=== PATIENT | male | born 1965 | race Hispanic/Latino ===

== ENCOUNTER 2018-10-16 11:50 | Emergency (ER) | payer SELFPAY ==
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
== END 2018-10-16 12:51 | disposition home or self-care (01) ==
LOC: ER 11:50
DX: T63.441A Toxic effect of venom of bees, accidental (unintentional), initial encounter (principal); R22.0 Localized swelling, mass and lump, head; R22.33 Localized swelling, mass and lump, upper limb, bilateral; Z91.030 Bee allergy status
CPT/HCPCS: 99282

== ENCOUNTER 2024-06-21 12:49 | Emergency (ER) | payer SELFPAY ==
--- NOTE | 2024-06-21 13:37 | RAD REPORT ---
EXAMINATION: CT HEAD WITHOUT CONTRAST CT CERVICAL SPINE WITHOUT CONTRAST CLINICAL INDICATION: Male, 59 years old. Pain;Trauma TECHNIQUE: Axial CT images from the skull base to the vertex without intravenous contrast. Axial CT i mages through the cervical spine were obtained without intravenous contrast. Sagittal and coronal reformatted images were created from the data set. Coronal and sagittal reformatted images were creat ed from the data set. One or more of the following dose reduction techniques were used: Automated exposure control, adjustment of the mA and/or kV according to patient size, and/or iterative reconstr uction. Unless otherwise specified, incidental findings do not require dedicated imaging follow-up. [id number]. COMPARISON: No prior exam. FINDINGS: Head: INTRACRANIAL: No acute intracranial hemorrhage. No hydrocephalus. No mass effect or midline shift. No significant white matter disease. VASCULATURE: No visualized abnormalities in the arteries or dural venous sinuses. SCALP/SKULL: No significant soft tissue or osseous abnormalities. SINUSES: Mild paranasal sinus thickening including at the maxillary sinuses and ethmoid air cells. Cervical spine: ALIGNMENT: The cervical spine has normal alignment without scoliosis or spondylolisthesis. BONE: Vertebral body heights are maintained. No aggressive osseous lesions. DEGENERATIVE CHANGES: None significant. SOFT TISSUE: No significant abnormalities in the soft tissue of the neck. The visualized lung apices are clear. IMPRESSION: No acute intracranial abnormality. No acute fracture or traumatic malalignment of the cervical spine.
--- NOTE | 2024-06-21 13:42 | RAD REPORT ---
EXAMINATION: LUMBAR SPINE 3 VIEWS CLINICAL INDICATION: Male, 59 years old. PAIN TECHNIQUE: AP, lateral, focused lateral lumbosacral views of the lumbar spine were obtained. [id number]. COMPARISON: CT 01/27/2023 FINDINGS: For purposes of this dictation, it is assumed that there are 5 lumbar type vertebral bodies and that S1 is a transitional vertebral body. ALIGNMENT: Grade 1 anterolisthesis of L5 on S1. BONES: Vertebral bodies are normal in height. No aggressive osseous lesions. DISCS: Disc heights are maintained. SOFT TISSUE: Surgical clips in the central abdomen. IMPRESSION: No acute lumbar spine abnormality.
--- NOTE | 2024-06-21 14:22 | EDPHYS ---
Physician Documentation [facility] Name: Marla Herrera Age: 59 yrs Sex: Male : 1965 Arrival Date: 06/21/2024 Time: 12:49 Bed IW1 Private MD: ED Physician Alexis Doyle HPI: 06/21 13:12 This 59 yrs old Male presents to ER via Ambulatory with complaints of Fall kb Injury, Head Injury-Adult, Back Pain. 13:12 Pt is a 59 year old male who presents for head injury and back pain after a fall that kb occurred at 4pm yesterday. States he missed a step while coming down a ladder and fell approx 2-3 feet. States he hit his head and back on a metal landing. Denies loc. States he went home and went to sleep, but pain has continued today and he feels lightheaded. Denies nausea, vomiting. . Historical: - Allergies: 13:08 PENICILLINS; ko1 - Immunization history:: Adult Immunizations unknown. - Infectious Disease History:: Denies. - Social history:: Smoking status: Patient denies any tobacco usage or history of. ROS: 13:12 Constitutional: As per HPI kb Exam: 13:11 Constitutional: This is a well developed, well nourished patient who is awake, alert, kb and in no acute distress. Head/Face: Normocephalic, atraumatic. ENT: Moist Mucous membranes Neck: Trachea midline and no cervical lymphadenopathy. Supple, full range of motion without nuchal rigidity, or vertebral point tenderness. No Meningismus. Cardiovascular: Regular rate Respiratory: Respirations even and unlabored. No increased work of breathing. Talking in full sentences Skin: Warm, dry with normal turgor. Normal color. MS/ Extremity: Pulses equal, no cyanosis. Neurovascular intact. Full, normal range of motion. Neuro: Awake and alert, GCS 15, oriented to person, place, time, and situation. 13:11 Back: pain, that is mild, that is moderate, ROM is normal, normal spinal alignment noted, vertebral tenderness, is appreciated at L1 and L2, Vital Signs: 13:05 BP 144 / 88; Pulse 81; Resp 16; Temp 97.1; Pulse Ox 100% ; ko1 14:26 BP 138 / 74; Pulse 77; Resp 15; Pulse Ox 99% ; ko1 MDM: 12:54 Medical Screening Exam initiated kb 13:12 Data reviewed: vital signs, nurses notes. kb 14:20 Differential diagnosis: closed head injury, contusion, fracture. Counseling: I had a kb detailed discussion with the patient and/or guardian regarding the historical points, exam findings, and any diagnostic results supporting the discharge/admit diagnosis, radiology results, the need for outpatient follow up, a family practitioner, to return to the emergency department if symptoms worsen or persist or if there are any questions or concerns that arise at home. 06/21 13:11 Order name: CT Head C Spine; Complete Time: 13:50 kb 06/21 13:11 Order name: Lumbar Spine (3 Views) XRAY; Complete Time: 13:50 kb Administered Medications: No medications were administered Disposition Summary: 06/21/24 14:22 Discharge Ordered Notes: Location: Home kb Condition: Stable kb Diagnosis - Unspecified injury of head, initial encounter kb - Low back pain kb - Fall (on) (from) other stairs and steps - ladder kb Followup: kb - With: Emergency Department - When: As needed - Reason: Worsening of condition Followup: kb - With: Private Physician - When: 2 - 3 days - Reason: Recheck today's complaints, Continuance of care, Re-evaluation by your physician Discharge Instructions: - Discharge Summary Sheet kb - Musculoskeletal Pain kb - Head Injury, Adult, [id number] kb Forms: - Medication Reconciliation Form kb - Antibiotic Education kb - Prescription Opioid Use kb - Patient Portal Instructions kb - Leadership Thank You Letter kb Prescriptions: - Ibuprofen 600 mg Oral Tablet - take 1 tablet ORAL route every 6 hours As needed take with food; 30 tablet; kb Refills: 0, Product Selection Permitted - orphenadrine citrate 100 mg Oral Tablet Sustained Release - take 1 tablet ORAL route 2 times per day As needed; 20 tablet; Refills: 0, kb Product Selection Permitted Addendum: 06/25/2024 12:54 Co-signature as Attending Physician, Alexis godwin medrano Signatures: Dispatcher [employer] Olga Connelly, CLERK TELEVISION PRODUCTION-C ISHAAN-Alexis Najera MD MD cha Oliver, Kathy, RN RN ko1
--- NOTE | 2024-06-21 14:22 | ER ---
Nurse's Notes [facility] Name: Marla Herrera Age: 59 yrs Sex: Male : 1965 Arrival Date: 06/21/2024 Time: 12:49 Bed IW1 Private MD: Diagnosis: Unspecified injury of head, initial encounter;Low back pain;Fall (on) (from) other stairs and steps-ladder Presentation: 06/21 13:05 Chief complaint: Patient states: fell yesterday at work about 4pm, hit back and back of ko1 head. Coronavirus screen: At this time, the client does not indicate any symptoms associated with coronavirus-19. Ebola Screen: No symptoms or risks identified at this time. Initial Sepsis Screen: Does the patient meet any 2 criteria? No. Patient's initial sepsis screen is negative. Does the patient have a suspected source of infection? No. Patient's initial sepsis screen is negative. Risk Assessment: Do you want to hurt yourself or someone else? Patient reports no desire to harm self or others. Onset of symptoms was June 20, 2024 at 16:00. 13:05 Method Of Arrival: Ambulatory ko1 13:05 Acuity: SHON 3 ko1 Triage Assessment: 13:08 General: Appears in no apparent distress. Behavior is calm, cooperative, appropriate ko1 for age. Pain: Complains of pain in back of head and back. Historical: - Allergies: 13:08 PENICILLINS; ko1 - Immunization history:: Adult Immunizations unknown. - Infectious Disease History:: Denies. - Social history:: Smoking status: Patient denies any tobacco usage or history of. Screenin:15 [facility] ED Fall Risk Assessment (Adult) History of falling in the last 3 months, ko1 including since admission Yes- single mechanical fall (1 pt) Confusion or Disorientation No (0 pts) Intoxicated or Sedated No (0 pts) Impaired Gait No (0 pts) Mobility Assist Device Used No (0 pt) Altered Elimination No (0 pt) Score/Fall Risk Level 0 - 2 = Low Risk Oriented to surroundings, Maintained a safe environment, Educated pt \T\ family on fall prevention, incl call for assistance when getting out of bed, Assessed \T\ reinforced patient's understanding of fall precautions, Hourly rounding (assess needs \T\ fall precautionary measures) done. Abuse screen: Denies threats or abuse. Denies injuries from another. Nutritional screening: No deficits noted. Tuberculosis screening: No symptoms or risk factors identified. Vital Signs: 13:05 BP 144 / 88; Pulse 81; Resp 16; Temp 97.1; Pulse Ox 100% ; ko1 14:26 BP 138 / 74; Pulse 77; Resp 15; Pulse Ox 99% ; ko1 ED Course: 12:52 Patient arrived in ED. mr 12:54 Olga Leonard FNP-C is [facility] kb 12:54 Alexis Doyle MD is Attending Physician. kb 13:08 Triage completed. ko1 13:08 Arm band placed on left wrist. Patient placed in waiting room, Patient notified of wait ko1 time. 13:15 Patient has correct armband on for positive identification. Provided Education on: ko1 tests. 13:15 No provider procedures requiring assistance completed. Patient did not have IV access ko1 during this emergency room visit. 13:25 Lumbar Spine (3 Views) XRAY In Process Unspecified. EDMS 13:28 CT Head C Spine In Process Unspecified. EDMS Administered Medications: No medications were administered Medication: 13:15 VIS not applicable for this client. ko1 Outcome: 14:22 Discharge ordered by . kb 14:26 Discharged to home ambulatory, with family, ko1 14:26 Condition: stable 14:26 Discharge instructions given to patient, family, Instructed on discharge instructions, follow up and referral plans. medication usage, Demonstrated understanding of instructions, follow-up care, medications, Prescriptions given X 2, 14:38 Patient left the ED. ko1 Signatures: Dispatcher [employer] EDMS Olga Leonard FNP-C FNP-Sabiha Dang, Reg Reg [address]ie Street, RN RN ko1
[2024-06-21 14:42] VITALS: TEMP 97.1
[2024-06-21 14:44] VITALS: BP 138/74; O2SAT 99
== END 2024-06-21 14:38 | disposition home or self-care (01) ==
LOC: ER 12:49
DX: S09.90XA Unspecified injury of head, initial encounter (principal); M54.50 Low back pain, unspecified; W11.XXXA Fall on and from ladder, initial encounter
CPT/HCPCS: 70450; 72100; 72125; 99283